=== PATIENT | female | born 1970 | race African-American/Black ===

== ENCOUNTER 2020-09-06 08:51 | Emergency (ER) | payer MEDICARE, OTHER ==
[~2020-09-06] VITALS: Ht 188 cm; Wt 95.3 kg
--- NOTE | 2020-09-06 09:04 | Emergency Room Report ---
History of Present Illness General Chief Complaint: Hemoptysis Source: Patient Present Illness HPI Disclaimer: Please note that this report is being documented using [employer] technology. This can lead to erroneous entry secondary to incorrect interpretation by the dictating instrument. HPI: 50-year-old female history of hypertension, COPD, current smoker presents with epistaxis, hemoptysis, chest tightness and shortness of breath. Symptoms began this morning. Was in her usual state of health last night. She states she woke up spitting up blood and bleeding from the nares this morning. Does not take blood thinners. Denies trauma. Reports chest tightness and increasing shortness of breath. Reports wheezing. Feels like she could pass out and very unsteady on her feet. Denies vertigo. Did not take her medications this morning. Denies hematemesis, vomiting, dark or bloody stools. Denies abdominal pain. Denies palpitations. Reports exertional dyspnea. PMH: COPD, hypertension PSH: Reviewed Allergies: Reviewed Social Hx: Current smoker Allergies: Coded Allergies: No Known Allergies (Unverified , 09/06/20) Review of Systems All Other Systems: negative except mentioned in HPI Physical Exam Vital Signs Date Time Temp Pulse Resp B/P (MAP) Pulse Ox O2 Delivery O2 Flow Rate FiO2 09/06/20 09:04 98.1 82 18 187/108 (134) 98 General: Awake and alert, appears anxious and uncomfortable HEENT: NC/AT. EOMI. mild oozing from the right nares. Dried blood in retropharynx. Cardiovascular: Regular rate and rhythm Resp: Normal work of breathing. Faint bilateral expiratory wheezes. No crackles. No cough. Abdomen: Abdomen is obese, soft, nondistended. Nontender Skin: Intact. No abrasions, laceration or rash over the exposed skin MSK: Normal tone and bulk. Moving all extremities. No obvious deformity. Neuro: Awake and alert. Mentating appropriately. Medical Decision Making Diagnostic Impression: Primary Impression: Epistaxis Additional Impressions: COPD exacerbation Near syncope Hypertension, uncontrolled ER Course 50-year-old female presents with epistaxis, shortness of breath, lightheadedness and near syncope. Differential includes not limited to ACS, arrhythmia, epistaxis, uncontrolled hypertension, COPD exacerbation, asthma exacerbation, pneumonia, chest mass, among others. Patient states she has been bleeding persistently and oxymetazoline sprayed nasal packing performed with control of bleeding. No evidence of upper GI bleed at this time. EKG is nonischemic. Chest x-ray does not show obvious infiltrate or pneumothorax. Patient treated with nebulizer and prednisone. Labs are within normal limits; no significant anemia, troponin negative. The patient still complaining of some chest discomfort. Feeling better after breathing treatments though she states she has not had a cardiac evaluation in the past. Given the uncontrolled hypertension, her medical history at her complaint of chest pain will admit for further work-up and management. Patient will be transferred to another facility for higher level of care as our hospital is closed to admissions. Transfer to [facility], Dr. Clark accepting physician. Laboratory Tests Test 09/06/20 09:00 White Blood Count 5.2 K/UL (4.8-10.8) Red Blood Count 5.04 M/UL (4.20-5.40) Hemoglobin 14.1 G/DL (12.0-16.0) Hematocrit 43.0 % (37.0-47.0) Mean Corpuscular Volume 85 FL (80-99) Mean Corpuscular Hemoglobin 27.9 PG (27.0-31.0) Mean Corpuscular Hemoglobin Concent 32.7 G/DL (32.0-36.0) Red Cell Distribution Width 12.6 % (11.6-14.8) Platelet Count 358 K/UL (150-450) Mean Platelet Volume 6.0 FL (6.5-10.1) L Neutrophils (%) (Auto) 47.6 % (45.0-75.0) Lymphocytes (%) (Auto) 41.3 % (20.0-45.0) Monocytes (%) (Auto) 6.8 % (1.0-10.0) Eosinophils (%) (Auto) 2.5 % (0.0-3.0) Basophils (%) (Auto) 1.8 % (0.0-2.0) Prothrombin Time 10.7 SEC (9.30-11.50) Prothrombin Time INR 1.0 (0.9-1.1) Activated Partial Thromboplast Time 27 SEC (23-33) Urine Color Yellow Urine Appearance Slightly cloudy Urine pH 7 (4.5-8.0) Urine Specific Clifford 1.010 (1.005-1.035) Urine Protein 1+ (NEGATIVE) H Urine Glucose (UA) Negative (NEGATIVE) Urine Ketones Negative (NEGATIVE) Urine Blood 3+ (NEGATIVE) H Urine Nitrite Negative (NEGATIVE) Urine Bilirubin Negative (NEGATIVE) Urine Urobilinogen Normal MG/DL (0.0-1.0) Urine Leukocyte Esterase 1+ (NEGATIVE) H Urine RBC 2-4 /HPF (0 - 2) H Urine WBC 0-2 /HPF (0 - 2) Urine Squamous Epithelial Cells Many /LPF (NONE/OCC) H Urine Bacteria Few /HPF (NONE) Sodium Level 139 MMOL/L (136-145) Potassium Level 4.1 MMOL/L (3.5-5.1) Chloride Level 102 MMOL/L (98-107) Carbon Dioxide Level 32 MMOL/L (21-32) Anion Gap 5 mmol/L (5-15) Blood Urea Nitrogen 9 mg/dL (7-18) Creatinine 0.9 MG/DL (0.55-1.30) Estimated Glomerular Filtration Rate > 60 mL/min (>60) Glucose Level 96 MG/DL (74-106) Calcium Level 9.0 MG/DL (8.5-10.1) Total Bilirubin 0.3 MG/DL (0.2-1.0) Aspartate Amino Transferase (AST) 18 U/L (15-37) Alanine Aminotransferase (ALT) 19 U/L (12-78) Alkaline Phosphatase 26 U/L (46-116) L Troponin I 0.000 ng/mL (0.000-0.056) Pro-B-Type Natriuretic Peptide 147 pg/mL (0-125) H Total Protein 7.9 G/DL (6.4-8.2) Albumin 4.0 G/DL (3.4-5.0) Globulin 3.9 g/dL Albumin/Globulin Ratio 1.0 (1.0-2.7) EKG Diagnostic Results Troponin ordered: Yes When was troponin ordered?: Sep 06, 2020 EKG Time: 09:19 Rate: normal Rhythm: NSR ST Segments: no acute changes Other Impression Sinus rhythm, normal axis, slightly prolonged QTC of 462 ms, no ST segment simental ges. ASA given to the pt in ED: No - Bleeding Rhythm Strip Diag. Results Rhythm Strip Time: 09:19 EP Interpretation: yes Rate: 75 Rhythm: NSR, no PVC's, no ectopy Chest X-Ray Diagnostic Results Chest X-Ray Diagnostic Results : Chest X-Ray Ordered: Yes # of Views/Limited/Complete: 1 View Indication: Chest Pain EP Interpretation: Yes Interpretation: no consolidation, no effusion, no pneumothorax, no acute cardiopulmonary disease Impression: No acute disease Electronically Signed by: Electronically signed by Dr. Dave Appiah MD Disposition: SHORT-TERM HOSP Condition: Stable Dave Appiah MD Sep 06, 2020 09:04
[2020-09-06] MEDS ORDERED: Oxymetazoline 0.05% Na Spray 30ml NASAL ONE (09:15)
--- NOTE | 2020-09-06 09:15 | NUR ---
CAME TO ER COMPLAINTS OF VOMITING BLOOD SINCE MORNING ALSO COUGHING OF BLOOD DENIES ANY OTHER PROBLEM
[2020-09-06] MEDS: Albuterol/Ipratropium 3ml neb HHN SCH ×4 (09:27→12:46)
[2020-09-06 09:28] VITALS: BP 187/108
[2020-09-06 09:38] LABS: BASOPHILS % (AUTO) 1.8 % (0.0-2.0); EOSINOPHILS % (AUTO) 2.5 % (0.0-3.0); HEMOGLOBIN 14.1 G/DL (12.0-16.0); LYMPHOCYTES % (AUTO) 41.3 % (20.0-45.0); MEAN CORPUSCULAR VOLUME 85 FL (80-99); MONOCYTES % (AUTO) 6.8 % (1.0-10.0); NEUTROPHILS % (AUTO) 47.6 % (45.0-75.0); PLATELET COUNT 358 K/UL (150-450); RED BLOOD COUNT 5.04 M/UL (4.20-5.40); RED CELL DISTRIBUTION WIDTH 12.6 % (11.6-14.8); WHITE BLOOD COUNT 5.2 K/UL (4.8-10.8)
--- NOTE | 2020-09-06 09:39 | NUR ---
ED Nurse Note: pt with good effect from nasal spray, epistaxis slowed but still trickling tolerating hhn well.
[2020-09-06 09:55] LABS: ALANINE AMINOTRANSFERASE 19 U/L (12-78); ALKALINE PHOSPHATASE 26 U/L (46-116); ANION GAP 5 mmol/L (5-15); ASPARTATE AMINO TRANSFERASE 18 U/L (15-37); BILIRUBIN,TOTAL 0.3 MG/DL (0.2-1.0); BLOOD UREA NITROGEN 9 mg/dL (7-18); CARBON DIOXIDE 32 MMOL/L (21-32); CHLORIDE 102 MMOL/L (98-107); CREATININE 0.9 MG/DL (0.55-1.30); POTASSIUM 4.1 MMOL/L (3.5-5.1); SODIUM 139 MMOL/L (136-145)
[2020-09-06 10:03] LABS: APPEARANCE,URINE SLIGHTLY CLOUDY; BILIRUBIN, URINE NEGATIVE (NEGATIVE); GLUCOSE, URINE (UA) NEGATIVE (NEGATIVE); KETONES,URINE NEGATIVE (NEGATIVE); LEUKOCYTE ESTERASE ,URINE 1+ (NEGATIVE); NITRITE,URINE NEGATIVE (NEGATIVE); PH,URINE 7 (4.5-8.0); PROTEIN,URINE 1+ (NEGATIVE); UROBILINOGEN,URINE NORMAL MG/DL (0.0-1.0)
[2020-09-06 10:10] LABS: COLOR,URINE YELLOW
--- NOTE | 2020-09-06 12:39 | NUR ---
ED Nurse Note: pt with no epistaxis noted at this time, occasionally clearing throat of small amount of phelgm tinged with blood. pt awaiting transfer info for admission to higher level of care.
[2020-09-06 12:42] VITALS: BP 170/102
--- NOTE | 2020-09-06 13:11 | NUR ---
ED Nurse Note: per employment case manager possible transfer to [facility]
--- NOTE | 2020-09-06 13:34 | NUR ---
ED Nurse Note: pt aware that she is being transferred to [facility] and agrees.
[2020-09-06] MEDS ORDERED: Acetaminophen 500mg (ES) tab ORAL ONE (13:45)
[2020-09-06 14:59] VITALS: BP 158/100
--- NOTE | 2020-09-06 15:16 | NUR ---
ED Nurse Note:report given to taina mojica at [facility]. ready for patient.[facility] here to transport . vss aware of improved bp and hydralazine held.
[2020-09-06 15:17] VITALS: BP 146/96
[2020-09-06 15:18] VITALS: BP 146/96
--- NOTE | 2020-09-06 17:37 | Diagnostic Imaging Report ---
Indication: Cough Technique: One view of the chest Comparison: none Findings: There is atelectasis at the left lung base. The lungs and pleural spaces are otherwise clear. The heart size is normal Impression: Left basilar atelectasis. No acute process otherwise
== END 2020-09-06 15:28 | disposition short-term general hospital (02) ==
LOC: EMR 09:14
DX: R04.0 Epistaxis (principal); J44.1 Chronic obstructive pulmonary disease with (acute) exacerbation; I10 Essential (primary) hypertension; F17.200 Nicotine dependence, unspecified, uncomplicated; E66.9 Obesity, unspecified; Z68.27 Body mass index [BMI] 27.0-27.9, adult
CPT/HCPCS: 36415; 71045; 80053; 81003; 83880; 84484; 85025; 85379; 85610; 85730; 86850; 86900; 86901; 94640; 96361; 96374; 99285; J0360; J7030; J7512; J7620